=== PATIENT | female | born 1995 ===

== ENCOUNTER 2022-02-12 10:56 | Outpatient (CLI) | payer OTHER | END 2022-02-12 11:49 | disposition home or self-care (01) | LOC: PRENATAL 10:56 | PROVIDERS: ATTEND Obstetrics & Gynecology Maternal & Fetal Medicine | DX: O35.0XX0 Maternal care for (suspected) central nervous system malformation in fetus, not applicable or unspecified (principal); O35.3XX0 Maternal care for (suspected) damage to fetus from viral disease in mother, not applicable or unspecified; O99.019 Anemia complicating pregnancy, unspecified trimester; Z3A.23 23 weeks gestation of pregnancy ==

== ENCOUNTER 2022-02-16 19:24 | Outpatient (CLI) | payer OTHER | END 2022-02-16 21:58 | disposition home or self-care (01) | LOC: OBS/DEL 19:24 | PROVIDERS: ATTEND Obstetrics & Gynecology | DX: O47.02 False labor before 37 completed weeks of gestation, second trimester (principal); Z3A.23 23 weeks gestation of pregnancy ==

== ENCOUNTER 2022-04-29 22:06 | Outpatient (CLI) | payer OTHER ==
[2022-04-29] MEDS ORDERED: PRENATAL TABLE1 EAC3 PO (22:35)
[2022-04-29] MEDS ORDERED: IRON325 MG PO (22:35)
== END 2022-04-30 13:05 | disposition home or self-care (01) ==
LOC: OBS/DEL 22:06
PROVIDERS: ATTEND Obstetrics & Gynecology
DX: O36.8130 Decreased fetal movements, third trimester, not applicable or unspecified (principal); Z3A.34 34 weeks gestation of pregnancy

== ENCOUNTER 2022-06-02 22:13 | Outpatient (CLI) | payer OTHER ==
[~2022-06-02 22:13] MED LIST: IRON325 MG PO; PRENATAL TABLE1 EAC3 PO
== END 2022-06-03 10:55 | disposition still patient (30) ==
LOC: OBS/DEL 22:13
PROVIDERS: ATTEND Obstetrics & Gynecology
DX: O47.03 False labor before 37 completed weeks of gestation, third trimester (principal); Z3A.39 39 weeks gestation of pregnancy